=== PATIENT | female | born 1960 | race Caucasian/White ===

== ENCOUNTER → 2019-04-17 | Outpatient (CLI) | payer BC ==
--- NOTE | 2019-04-17 16:56 | Diagnostic Imaging Report ---
CT of the chest, without contrast, 04/17/2019. History: Lung cancer screening. Comparison: None available. Technique: Multidetector CT scanning of the chest was performed from the level of the apices to the upper abdomen without contrast, using a low-dose screening protocol. Coronal and sagittal multiplanar reformations were obtained. RADIATION DOSE: Total DLP: 210 mGy*cm Dose modulation, iterative reconstruction, and/or weight based adjustment of the mA/kV was utilized to reduce the radiation dose to as low as reasonably achievable. Discussion: Evaluation is limited without IV contrast. Chest: The heart, aorta, and pulmonary vessels are normal in size. Coronary artery calcifications are noted. The thyroid is unremarkable. There is axillary or mediastinal adenopathy. There is minimal biapical pleural thickening and scattered bilateral linear scarring. Minimal centrilobular emphysema is noted bilaterally. There is no evidence of consolidation, suspicious nodule, or pleural effusion. Limited evaluation of the upper abdomen shows normal adrenal glands. Cholecystectomy clips are present. Bones and soft tissues: No acute abnormality. Mild degenerative changes are present throughout the thoracic spine. IMPRESSION: No acute or suspicious pulmonary findings. Signed by: Laurent Sinclair on 04/17/2019 4:53 PM
== END ==
LOC: CT 15:38
PROVIDERS: ATTEND Internal Medicine
DX: Z00.00 Encounter for general adult medical examination without abnormal findings (principal); Z12.2 Encounter for screening for malignant neoplasm of respiratory organs; F17.210 Nicotine dependence, cigarettes, uncomplicated
CPT/HCPCS: 71250

== ENCOUNTER → 2019-05-14 | Outpatient (CLI) | payer BC | LOC: MAMMO 16:28 | PROVIDERS: ATTEND Internal Medicine | DX: Z12.31 Encounter for screening mammogram for malignant neoplasm of breast (principal) | CPT/HCPCS: 77067 ==